=== PATIENT | male | born 1985 | race Caucasian/White ===

== ENCOUNTER 2021-12-20 19:58 | Emergency (ER) | payer OTHER ==
[~2021-12-20] VITALS: Ht 182.9 cm; Wt 90.9 kg
[2021-12-21 05:00] VITALS: BP 126/63
[2021-12-21] MEDS ORDERED: NIRMATRELVIR/RITONAVIR CO-PACK (EMERGENCY USE AUTH) PO SCH ×2 (06:00→09:00)
== END 2021-12-21 06:31 | disposition home or self-care (01) ==
LOC: M ED 19:58
DX: U07.1 COVID-19 (principal); R50.9 Fever, unspecified; R53.81 Other malaise; Z88.1 Allergy status to other antibiotic agents; Z88.2 Allergy status to sulfonamides